=== PATIENT | female | born 1955 | race Two or more races ===

== ENCOUNTER 2017-04-03 14:00 | Outpatient (CLI) | payer OTHER | END 2017-04-03 23:59 | disposition home or self-care (01) | LOC: WOU 14:00 | PROVIDERS: ATTEND Specialist | DX: T86.828 Other complications of skin graft (allograft) (autograft) (principal); C50.911 Malignant neoplasm of unspecified site of right female breast; Z90.11 Acquired absence of right breast and nipple | CPT/HCPCS: G0463 ==